=== PATIENT | female | born 1960 | race Asian ===

== ENCOUNTER 2021-12-24 05:08 | Observation (INO) ==
[2021-12-24 06:20] LABS: Venous Bicarbonate HCO3 12.1 mmol/L (24-28)
[2021-12-24 06:21] LABS: ABS Lymphocytes 0.7 10^3/ul (1.0-4.8); ABS Monocytes 0.2 10^3/ul (0-0.8); Hematocrit 48 % (35-47); Hemoglobin 15.8 g/dL (12.0-16.0); Lymphocyte % 8.9 %; Mean Corpuscular HGB Conc 33 g/dL (31-36); Mean Corpuscular Hemoglobin 29 pg (27-31); Mean Corpuscular Volume 88 fL (80-97); Mean Platelet Volume 7.1 fL (7.4-10.4); Platelet Count 276 10^3/uL (150-450); Red Blood Count 5.42 10^6 /uL (3.70-4.87); Red Cell Distribution Width 13 % (10-15)
[2021-12-24 06:24] LABS: Carbon Monoxide <4.0 % (<4.0)
[2021-12-24] MEDS ORDERED: Metoclopramide 5 MG/ML VIAL (10 mg) IV SLOW PU ONE (06:26)
[2021-12-24] MEDS ORDERED: Lactated Ringers 1000 ml BAG 1,000 ML IV ONE ×2 (06:26→09:29)
[2021-12-24 07:02] LABS: Albumin 5.1 g/dL (3.2-5.2); Albumin/Globulin Ratio 1.5 (1-3); Calcium 9.9 mg/dL (8.6-10.3); Globulin 3.4 g/dL (2-4); Potassium 4.6 mmol/L (3.5-5.0); Total Bilirubin 0.6 mg/dL (0.2-1.0); Total Protein 8.5 g/dL (6.4-8.9); eGFR CKD-EPI 70.4 (>60)
[2021-12-24] MEDS ORDERED: Iohexol 350 (CONTRAST) 500 ML MDV IV ONE (07:30)
[2021-12-24 08:23] LABS: Acetaminophen < 15 mcg/mL; Salicylate < 2.50 mg/dL (<30)
[2021-12-24 09:08] LABS: Osmolality Serum 291 mOsm/kg (275-295)
[2021-12-24 09:38] LABS: Urine Appearance Clear; Urine Bilirubin Negative (Negative); Urine Blood 2+ (Negative); Urine Color Straw; Urine Glucose Negative (Negative); Urine Ketones 2+ (Negative); Urine Nitrite Negative (Negative); Urine Protein 1+(30 mg/dL) (Negative); Urine Specific Gravity 1.035 (1.002-1.030); Urine Urobilinogen Negative (Negative)
[2021-12-24 09:42] LABS: Urine Bacteria Absent (Absent); Urine Red Blood Cell 1+(3-5/hpf) (Absent); Urine Squamous Epithelial Cell Present (Absent); Urine White Blood Cell Trace(0-5/hpf) (Absent)
[2021-12-24 11:07] LABS: Urine Osmo 465 mOsm/kg (150-1150)
[2021-12-24 11:16] LABS: Urine Chloride Concentration < 22 mmol/L; Urine Potassium Concentration 26.6 mmol/L; Urine Sodium Concentration 64 mmol/L
[2021-12-24] MEDS ORDERED: Magnesium Sulfate IV 1GM/100ML 1 GM/100 ML BAG IV ONE (11:51)
[2021-12-24] MEDS: Ondansetron 4 mg VIAL 2 MG/ML 2 ml VIAL IV PRN (14:09)
[2021-12-24] MEDS ORDERED: Metoclopramide 5 MG/ML VIAL (10 mg) IV ONE (14:56)
[2021-12-24 15:10] LABS: Calcium 8.7 mg/dL (8.6-10.3); Potassium 4.4 mmol/L (3.5-5.0)
[2021-12-24 15:15] LABS: eGFR CKD-EPI 84.3 (>60)
[2021-12-24] MEDS: D5W 1/2 NS 1000 ml BAG 1,000 ML IV SCH (19:52)
[2021-12-25] MEDS: D5W 1/2 NS 1000 ml BAG 1,000 ML IV SCH (02:37)
[2021-12-25] MEDS ORDERED: D5W 1/2 NS 1000 ml BAG 1,000 ML IV SCH (02:48)
[2021-12-25 04:49] LABS: ABS Lymphocytes 1.3 10^3/ul (1.0-4.8); ABS Monocytes 0.3 10^3/ul (0-0.8); ABS Neutrophils 2.1 10^3/ul (1.5-7.7); Eosinophil % 0.7 %; Hematocrit 35 % (35-47); Hemoglobin 11.8 g/dL (12.0-16.0); Lymphocyte % 35.1 %; Mean Corpuscular HGB Conc 34 g/dL (31-36); Mean Corpuscular Hemoglobin 29 pg (27-31); Mean Corpuscular Volume 86 fL (80-97); Mean Platelet Volume 6.8 fL (7.4-10.4); Platelet Count 191 10^3/uL (150-450); Red Blood Count 4.02 10^6 /uL (3.70-4.87); Red Cell Distribution Width 13 % (10-15); White Blood Count 3.7 10^3/uL (3.5-10.8)
[2021-12-25 05:14] LABS: Calcium 8.2 mg/dL (8.6-10.3); Phosphorus 1.1 mg/dL (2.5-5.0); Potassium 3.7 mmol/L (3.5-5.0); eGFR CKD-EPI 101.5 (>60)
[2021-12-25] MEDS: Ondansetron 4 mg VIAL 2 MG/ML 2 ml VIAL IV PRN ×2 (06:17→12:40)
[2021-12-25] MEDS ORDERED: Sodium Phosphate IV 30 MMOLE in NS 0.9% 250 ml 250 ML IV ONE (06:46)
[2021-12-25 14:35] VITALS: BP 82/44
[2021-12-26 21:55] LABS: Anaplasma phagocytophilum Negative (Negative); B. miyamotoi PCR, B Negative (Negative); Babesia divergens/MO-1 Negative (Negative); Babesia ducani Negative (Negative); Ehrlichia chaffeensis Negative (Negative); Ehrlichia ewingii/canis Negative (Negative); Ehrlichia muris eauclairensis Negative (Negative)
== END 2021-12-25 15:10 | disposition home or self-care (01) ==
LOC: EDHOLD 05:08 → ED 05:08 → MEDTELE 20:58
PROVIDERS: ADMIT Internal Medicine; ATTEND Internal Medicine